=== PATIENT | male | born 1985 | race African-American/Black ===

== ENCOUNTER → 2017-01-05 | Outpatient (CLI) | payer MEDICARE, OTHER ==
--- NOTE | ~2017-01-05 | CR222 ---
[facility] A Service of [facility] & [facility] RADIOLOGY TEXT RESULTS PATIENT: DONTAE HERRING LOCATION: [facility] : [birth year] UNIT #: [id number] AGE: [address]: Jazmine Wright MD SEX: M ORDER DR: [id number] [facility] [address] [place], [place] [address] [id number] O MR#: [id number] Acc #: [id number] NAME: DONTAE HERRING : 1985 SEX: M STUDY DATE/TIME: 01/05/2017 10:04 UNIT: [facility] ROOM: STUDY DESCRIPTION: CR Scoliosis Standing Attending Physician: Jazmine Wright M.D. Referring Physician: Jazmine Wright M.D. Ordering Physician: Jazmine Wright M.D. Primary Care Physician: No Primary Care Physician MEDICAL IMAGING REPORT This report is preliminary unless electronic signature is present EXAM Scoliosis study, AP imaging. HISTORY Scoliosis on clinical examination with back pain. FINDINGS An AP view of the thoracic and lumbar spine were obtained. The upper 2/3 of the thoracic spine appear normal. There is about 23 degrees of levoscoliosis centered at T12. The vertebral bodies appear normal. IMPRESSION This patient has only 1 dominant scoliosis curve and that is centered at T12 and shows about 23 degrees of levoscoliosis. Dictated by... Ketan Alva M.D. THIS IS AN ELECTRONICALLY VERIFIED REPORT Ketan Alva M.D. at 01/05/2017 2:59 PM LIU/winnie TD: 01/05/2017 14:35 JOB #: [id number] MEDICAL IMAGING REPORT COPY
== END | disposition home or self-care (01) ==
LOC: CRAD 09:49
DX: M62.830 Muscle spasm of back (principal); M41.9 Scoliosis, unspecified
CPT/HCPCS: 72081